=== PATIENT | female | born 2000 | race Caucasian/White ===

== ENCOUNTER 2019-05-08 11:10 | Emergency (ER) | payer SELFPAY ==
[~2019-05-08] VITALS: Ht 162.6 cm; Wt 77.1 kg
[2019-05-08 11:13] VITALS: Ht 162.6 cm; Wt 77.1 kg
[2019-05-08] MEDS ORDERED: HYDROCODON-ACE1 EAC7 PO (12:20)
[2019-05-08 12:56] VITALS: BP 108/70
== END 2019-05-08 12:55 | disposition home or self-care (01) ==
LOC: D.ER 11:10
DX: S61.216A Laceration without foreign body of right little finger without damage to nail, initial encounter (principal); W26.0XXA Contact with knife, initial encounter; Y93.89 Activity, other specified; Y92.019 Unspecified place in single-family (private) house as the place of occurrence of the external cause